=== PATIENT | female | born 1940 | race Caucasian/White ===

== ENCOUNTER 2022-10-27 13:28 | Inpatient (IN) | payer OTHER, BC ==
[2022-10-27 13:37] VITALS: BMI 21.5
[2022-10-27] MEDS ORDERED: VANCOMYCIN/WATER 1,250 MG/250 ML BAG (RESTRICTED TO ID ONLY) IVPB ONE (14:53)
[2022-10-27] MEDS ORDERED: VANCOMYCIN/WATER 1250 MG 1,250 MG/250 ML BAG IVPB ONE (16:22)
[2022-10-27 17:21] LABS: HEMOGLOBIN 14.4 GM/dL (10.7-15.3); MCH 29.8 pg (25.7-33.7); MEAN CELL VOLUME 93.1 fl (80-96); MEAN PLT VOLUME 7.9 fl (7.5-11.1); PLATELET COUNT 316 10^3/uL (134-434); RBC 4.84 M/mm3 (3.60-5.2); RDW 13.4 % (11.6-15.6); WHITE BLOOD COUNT 12.5 K/mm3 (4.0-10.0)
[2022-10-27 17:32] LABS: INR 1.06 (0.83-1.09); PROTHROMBIN TIME (PATIENT) 12.3 SEC (9.7-13.0)
[2022-10-27 17:41] LABS: POTASSIUM 3.8 mmol/L (3.5-5.1)
[2022-10-27 17:44] LABS: BLOOD UREA NITROGEN 18.4 mg/dL (7-18); CALCIUM 9.1 mg/dL (8.5-10.1)
[2022-10-27 17:45] LABS: ALBUMIN 3.8 g/dl (3.4-5.0)
[2022-10-27 17:48] LABS: CREATININE 0.6 mg/dL (0.55-1.3)
[2022-10-27 17:49] LABS: BILIRUBIN,TOTAL 0.8 mg/dL (0.2-1); TOT PROT 7.3 g/dl (6.4-8.2)
[2022-10-27] MEDS ORDERED: HALOPERIDOL LACTATE 5 MG/ML IM ONE ×3 (18:23→18:37)
[2022-10-27 18:28] LABS: ERYTHROCYTE SEDIMENTATION RATE 8 mm/hr (0-30)
[2022-10-27] MEDS ORDERED: LORazepam 1 MG TABLET PO ONE (20:04)
[2022-10-27] MEDS ORDERED: LORazepam 1 MG TABLET ONE (20:21)
[2022-10-27] MEDS ORDERED: LORazepam 2 MG/ML SDV VIAL IVPUSH ONE (20:23)
[2022-10-27] MEDS ORDERED: SODIUM CHLORIDE 1,000 ML IV SCH (23:15)
[2022-10-28] MEDS: CLINDAMYCIN 300 MG PREMIX IVPB 300 MG/50 ML BAG IVPB SCH ×2 (00:49→05:19)
[2022-10-28] MEDS: DONEPEZIL HCL 10 MG TABLET (FP) PO SCH (09:12)
[2022-10-28] MEDS: MEMANTINE HCL 5 MG TABLET (UD) PO SCH ×2 (09:12→22:10)
[2022-10-28] MEDS: ENOXAPARIN NA (PORCINE) 40 MG/0.4 ML DISP.SYRIN SQ SCH (09:12)
[2022-10-28] MEDS ORDERED: CEFTRIAXONE 1 GM in DEXTROSE 5%-WATER - 50 ML IVPB SCH (10:00)
[2022-10-28 10:14] LABS: HEMATOCRIT 44.4 % (32.4-45.2); HEMOGLOBIN 14.4 GM/dL (10.7-15.3); MCH 29.6 pg (25.7-33.7); MCHC 32.4 g/dl (32.0-36.0); MEAN CELL VOLUME 91.3 fl (80-96); MEAN PLT VOLUME 7.9 fl (7.5-11.1); PLATELET COUNT 366 10^3/uL (134-434); RBC 4.86 M/mm3 (3.60-5.2); RDW 13.2 % (11.6-15.6); WHITE BLOOD COUNT 20.1 K/mm3 (4.0-10.0)
[2022-10-28 10:28] LABS: POTASSIUM 3.9 mmol/L (3.5-5.1)
[2022-10-28 10:37] LABS: ALBUMIN 3.8 g/dl (3.4-5.0); CALCIUM 9.4 mg/dL (8.5-10.1)
[2022-10-28 10:38] LABS: BLOOD UREA NITROGEN 13.4 mg/dL (7-18); MAGNESIUM 2.3 mg/dL (1.8-2.4)
[2022-10-28 10:40] LABS: PHOSPHOROUS 3.3 mg/dL (2.5-4.9)
[2022-10-28 10:41] LABS: CREATININE 0.7 mg/dL (0.55-1.3)
[2022-10-28 10:42] LABS: BILIRUBIN,TOTAL 1.2 mg/dL (0.2-1); TOT PROT 7.3 g/dl (6.4-8.2)
[2022-10-28 11:46] LABS: ANISOCYTOSIS 1+; MACROCYTOSIS 0; TOXIC GRANULATION 1+
[2022-10-28] MEDS ORDERED: PIPERACILLIN/TAZOB 3.375 GM 3.375 GM in DEXTROSE 5%-WATER - 50 ML IVPB ONE (13:00)
[2022-10-28] MEDS ORDERED: LACTATED RINGERS SOLUTION 1,000 ML/1,000 ML INFUS.BAG IV STA (15:13)
[2022-10-28] MEDS ORDERED: QUEtiapine FUMARATE 100 MG TABLET (FP) PO PRN (15:19)
[2022-10-28] MEDS ORDERED: LACTATED RINGERS SOLUTION 1,000 ML/1,000 ML INFUS.BAG IV SCH (15:45)
[2022-10-28] MEDS: VANCOMYCIN/WATER FOR INJ (PEG) 1,000 MG/200 ML BAG IVPB SCH (16:19)
[2022-10-28 18:28] LABS: BASO % 0.4 % (0-2.0); EOS % 0.2 % (0-4.5); HEMATOCRIT 42.7 % (32.4-45.2); HEMOGLOBIN 14.3 GM/dL (10.7-15.3); MCHC 33.5 g/dl (32.0-36.0); MEAN CELL VOLUME 89.5 fl (80-96); MEAN PLT VOLUME 7.3 fl (7.5-11.1); MONO % 3.6 % (3.8-10.2); NEUT % 69.8 % (42.8-82.8); PLATELET COUNT 377 10^3/uL (134-434); RBC 4.77 M/mm3 (3.60-5.2); RDW 13.5 % (11.6-15.6); WHITE BLOOD COUNT 22.1 K/mm3 (4.0-10.0)
[2022-10-28] MEDS: MIRTAZAPINE 15 MG TABLET (FP) PO SCH (22:09)
[2022-10-29 09:17] LABS: BASO % 0.4 % (0-2.0); EOS % 1.2 % (0-4.5); HEMATOCRIT 42.7 % (32.4-45.2); HEMOGLOBIN 13.9 GM/dL (10.7-15.3); LYMPH % 34.1 % (8-40); MCH 30.1 pg (25.7-33.7); MCHC 32.6 g/dl (32.0-36.0); MEAN CELL VOLUME 92.5 fl (80-96); MEAN PLT VOLUME 7.3 fl (7.5-11.1); MONO % 4.8 % (3.8-10.2); NEUT % 59.5 % (42.8-82.8); PLATELET COUNT 302 10^3/uL (134-434); RBC 4.61 M/mm3 (3.60-5.2); RDW 13.4 % (11.6-15.6); WHITE BLOOD COUNT 12.5 K/mm3 (4.0-10.0)
[2022-10-29 09:29] LABS: POTASSIUM 3.7 mmol/L (3.5-5.1)
[2022-10-29 09:35] LABS: BLOOD UREA NITROGEN 14.6 mg/dL (7-18); CALCIUM 8.6 mg/dL (8.5-10.1)
[2022-10-29 09:36] LABS: ALBUMIN 3.2 g/dl (3.4-5.0)
[2022-10-29 09:39] LABS: CREATININE 0.6 mg/dL (0.55-1.3)
[2022-10-29 09:41] LABS: TOT PROT 6.4 g/dl (6.4-8.2)
[2022-10-29 09:44] LABS: BILIRUBIN,TOTAL 1.1 mg/dL (0.2-1)
[2022-10-29] MEDS: DONEPEZIL HCL 10 MG TABLET (FP) PO SCH (10:15)
[2022-10-29] MEDS: CEFTRIAXONE 2 GM in DEXTROSE 5%-WATER 100 ML IVPB SCH (10:15)
[2022-10-29] MEDS: QUEtiapine FUMARATE 100 MG TABLET (FP) PO SCH ×3 (10:15→21:29)
[2022-10-29] MEDS: ENOXAPARIN NA (PORCINE) 40 MG/0.4 ML DISP.SYRIN SQ SCH (10:15)
[2022-10-29] MEDS: MEMANTINE HCL 5 MG TABLET (UD) PO SCH ×2 (10:15→21:29)
[2022-10-29] MEDS: SODIUM CHLORIDE 0.45% 1,000 ML IV SCH (11:25)
[2022-10-29] MEDS: VANCOMYCIN/WATER FOR INJ (PEG) 1,000 MG/200 ML BAG IVPB SCH (16:12)
[2022-10-29] MEDS: MIRTAZAPINE 15 MG TABLET (FP) PO SCH (21:29)
[2022-10-30] MEDS: QUEtiapine FUMARATE 100 MG TABLET (FP) PO SCH ×3 (06:09→22:03)
[2022-10-30] MEDS: SODIUM CHLORIDE 0.45% 1,000 ML IV SCH ×2 (06:17→15:53)
[2022-10-30 09:43] LABS: BASO % 0.4 % (0-2.0); HEMATOCRIT 43.4 % (32.4-45.2); HEMOGLOBIN 14.1 GM/dL (10.7-15.3); LYMPH % 39.3 % (8-40); MCHC 32.4 g/dl (32.0-36.0); MEAN CELL VOLUME 92.6 fl (80-96); MEAN PLT VOLUME 7.4 fl (7.5-11.1); MONO % 3.7 % (3.8-10.2); NEUT % 54.6 % (42.8-82.8); PLATELET COUNT 297 10^3/uL (134-434); RBC 4.69 M/mm3 (3.60-5.2); RDW 13.3 % (11.6-15.6); WHITE BLOOD COUNT 10.4 K/mm3 (4.0-10.0)
[2022-10-30 10:08] LABS: ALBUMIN 3.1 g/dl (3.4-5.0); BLOOD UREA NITROGEN 15.3 mg/dL (7-18); CALCIUM 8.5 mg/dL (8.5-10.1)
[2022-10-30 10:12] LABS: CREATININE 0.6 mg/dL (0.55-1.3)
[2022-10-30 10:14] LABS: TOT PROT 6.1 g/dl (6.4-8.2)
[2022-10-30] MEDS: DONEPEZIL HCL 10 MG TABLET (FP) PO SCH (10:27)
[2022-10-30] MEDS: MEMANTINE HCL 5 MG TABLET (UD) PO SCH ×2 (10:27→22:03)
[2022-10-30] MEDS: ENOXAPARIN NA (PORCINE) 40 MG/0.4 ML DISP.SYRIN SQ SCH (10:27)
[2022-10-30] MEDS: CEFTRIAXONE 2 GM in DEXTROSE 5%-WATER 100 ML IVPB SCH (10:28)
[2022-10-30 14:53] VITALS: RESP 18
[2022-10-30] MEDS: VANCOMYCIN/WATER FOR INJ (PEG) 1,000 MG/200 ML BAG IVPB SCH (17:50)
[2022-10-30] MEDS: MIRTAZAPINE 15 MG TABLET (FP) PO SCH (22:03)
[2022-10-31] MEDS: QUEtiapine FUMARATE 100 MG TABLET (FP) PO SCH ×3 (05:06→21:23)
[2022-10-31 08:58] LABS: BASO % 0.6 % (0-2.0); HEMATOCRIT 42.3 % (32.4-45.2); HEMOGLOBIN 13.7 GM/dL (10.7-15.3); LYMPH % 41.1 % (8-40); MCH 30.4 pg (25.7-33.7); MCHC 32.4 g/dl (32.0-36.0); MEAN CELL VOLUME 93.8 fl (80-96); MEAN PLT VOLUME 7.3 fl (7.5-11.1); MONO % 4.6 % (3.8-10.2); NEUT % 51.7 % (42.8-82.8); PLATELET COUNT 280 10^3/uL (134-434); RBC 4.51 M/mm3 (3.60-5.2); RDW 13.4 % (11.6-15.6); WHITE BLOOD COUNT 10.9 K/mm3 (4.0-10.0)
[2022-10-31 09:25] LABS: BLOOD UREA NITROGEN 14.1 mg/dL (7-18); CALCIUM 8.5 mg/dL (8.5-10.1)
[2022-10-31 09:29] LABS: CREATININE 0.5 mg/dL (0.55-1.3)
[2022-10-31] MEDS: DONEPEZIL HCL 10 MG TABLET (FP) PO SCH (10:49)
[2022-10-31] MEDS: ENOXAPARIN NA (PORCINE) 40 MG/0.4 ML DISP.SYRIN SQ SCH (10:49)
[2022-10-31] MEDS: MEMANTINE HCL 5 MG TABLET (UD) PO SCH ×2 (10:49→21:23)
[2022-10-31] MEDS: CEFTRIAXONE 2 GM in DEXTROSE 5%-WATER 100 ML IVPB SCH (10:50)
[2022-10-31] MEDS ORDERED: SODIUM CHLORIDE 0.45% 1,000 ML IV SCH (11:45)
[2022-10-31] MEDS: VANCOMYCIN/WATER FOR INJ (PEG) 1,000 MG/200 ML BAG IVPB SCH (16:40)
[2022-10-31] MEDS: MIRTAZAPINE 15 MG TABLET (FP) PO SCH (21:22)
[2022-11-01] MEDS: QUEtiapine FUMARATE 100 MG TABLET (FP) PO SCH ×3 (05:38→21:21)
[2022-11-01 09:22] LABS: POTASSIUM 3.9 mmol/L (3.5-5.1)
[2022-11-01 09:26] LABS: BASO % 0.3 % (0-2.0); HEMATOCRIT 40.1 % (32.4-45.2); HEMOGLOBIN 13.6 GM/dL (10.7-15.3); LYMPH % 36.7 % (8-40); MCH 30.7 pg (25.7-33.7); MEAN CELL VOLUME 90.2 fl (80-96); MEAN PLT VOLUME 7.1 fl (7.5-11.1); MONO % 4.2 % (3.8-10.2); NEUT % 56.8 % (42.8-82.8); PLATELET COUNT 293 10^3/uL (134-434); RBC 4.45 M/mm3 (3.60-5.2); RDW 13.5 % (11.6-15.6); WHITE BLOOD COUNT 9.6 K/mm3 (4.0-10.0)
[2022-11-01 09:29] LABS: CALCIUM 8.6 mg/dL (8.5-10.1)
[2022-11-01 09:30] LABS: BLOOD UREA NITROGEN 18.3 mg/dL (7-18)
[2022-11-01 09:33] LABS: CREATININE 0.6 mg/dL (0.55-1.3)
[2022-11-01] MEDS: MEMANTINE HCL 5 MG TABLET (UD) PO SCH ×2 (10:56→21:21)
[2022-11-01] MEDS: DONEPEZIL HCL 10 MG TABLET (FP) PO SCH (10:56)
[2022-11-01] MEDS: CEFTRIAXONE 2 GM in DEXTROSE 5%-WATER 100 ML IVPB SCH (11:00)
[2022-11-01] MEDS: ENOXAPARIN NA (PORCINE) 40 MG/0.4 ML DISP.SYRIN SQ SCH (12:04)
[2022-11-01] MEDS ORDERED: LORazepam 2 MG/ML SDV VIAL IVPUSH ONE (14:11)
[2022-11-01] MEDS: MIRTAZAPINE 15 MG TABLET (FP) PO SCH (21:21)
[2022-11-02] MEDS: QUEtiapine FUMARATE 100 MG TABLET (FP) PO SCH ×3 (05:40→21:35)
[2022-11-02 09:41] LABS: HEMATOCRIT 41.9 % (32.4-45.2); HEMOGLOBIN 14.2 GM/dL (10.7-15.3); MCH 30.6 pg (25.7-33.7); MCHC 33.8 g/dl (32.0-36.0); MEAN CELL VOLUME 90.5 fl (80-96); MEAN PLT VOLUME 6.7 fl (7.5-11.1); PLATELET COUNT 317 10^3/uL (134-434); RBC 4.63 M/mm3 (3.60-5.2); RDW 13.6 % (11.6-15.6); WHITE BLOOD COUNT 10.2 K/mm3 (4.0-10.0)
[2022-11-02 10:00] LABS: POTASSIUM 4.2 mmol/L (3.5-5.1)
[2022-11-02 10:08] LABS: CALCIUM 8.7 mg/dL (8.5-10.1)
[2022-11-02 10:11] LABS: BLOOD UREA NITROGEN 15.5 mg/dL (7-18)
[2022-11-02 10:12] LABS: CREATININE 0.5 mg/dL (0.55-1.3)
[2022-11-02] MEDS: ENOXAPARIN NA (PORCINE) 40 MG/0.4 ML DISP.SYRIN SQ SCH (10:25)
[2022-11-02] MEDS: CEFAZOLIN SODIUM 2 GM in DEXTROSE 5%-WATER 100 ML IVPB SCH ×2 (10:25→19:02)
[2022-11-02] MEDS: DONEPEZIL HCL 10 MG TABLET (FP) PO SCH (10:25)
[2022-11-02] MEDS: MEMANTINE HCL 5 MG TABLET (UD) PO SCH ×2 (10:26→21:35)
[2022-11-02] MEDS: MIRTAZAPINE 15 MG TABLET (FP) PO SCH (21:35)
[2022-11-03] MEDS: CEFAZOLIN SODIUM 2 GM in DEXTROSE 5%-WATER 100 ML IVPB SCH ×3 (03:21→18:16)
[2022-11-03] MEDS: QUEtiapine FUMARATE 100 MG TABLET (FP) PO SCH ×3 (06:08→22:33)
[2022-11-03 08:51] LABS: HEMATOCRIT 43.1 % (32.4-45.2); MCH 30.2 pg (25.7-33.7); MCHC 32.5 g/dl (32.0-36.0); MEAN CELL VOLUME 92.8 fl (80-96); MEAN PLT VOLUME 7.4 fl (7.5-11.1); PLATELET COUNT 312 10^3/uL (134-434); RBC 4.64 M/mm3 (3.60-5.2); RDW 13.3 % (11.6-15.6)
[2022-11-03] MEDS: DONEPEZIL HCL 10 MG TABLET (FP) PO SCH (11:24)
[2022-11-03] MEDS: MEMANTINE HCL 5 MG TABLET (UD) PO SCH ×2 (11:24→22:33)
[2022-11-03] MEDS: ENOXAPARIN NA (PORCINE) 40 MG/0.4 ML DISP.SYRIN SQ SCH (11:25)
[2022-11-03] MEDS: MIRTAZAPINE 15 MG TABLET (FP) PO SCH (22:33)
[2022-11-04] MEDS: CEFAZOLIN SODIUM 2 GM in DEXTROSE 5%-WATER 100 ML IVPB SCH ×2 (01:21→10:06)
[2022-11-04] MEDS: QUEtiapine FUMARATE 100 MG TABLET (FP) PO SCH ×2 (06:02→14:30)
[2022-11-04] MEDS: ENOXAPARIN NA (PORCINE) 40 MG/0.4 ML DISP.SYRIN SQ SCH (10:05)
[2022-11-04] MEDS: MEMANTINE HCL 5 MG TABLET (UD) PO SCH (10:07)
[2022-11-04 14:22] VITALS: BP 121/51; PULSE 87; TEMP 98.4
[2022-11-04] MEDS ORDERED: DONEPEZIL HCL 10 MG TABLET (FP) PO SCH (22:00)
== END 2022-11-04 15:56 | disposition home health service (06) | DRG 541 ==
LOC: JER 13:28 → JERBED 21:56 → J6S 23:23
PROVIDERS: ADMIT Internal Medicine; ATTEND Internal Medicine
DX: M86.8X6 Other osteomyelitis, lower leg (principal); L03.031 Cellulitis of right toe; F03.90 Unspecified dementia, unspecified severity, without behavioral disturbance, psychotic disturbance, mood disturbance, and anxiety; F17.210 Nicotine dependence, cigarettes, uncomplicated; D72.829 Elevated white blood cell count, unspecified; B95.61 Methicillin susceptible Staphylococcus aureus infection as the cause of diseases classified elsewhere
CPT/HCPCS: 36415; 71045-TC-FY; 73660-TC-FY; 80048; 80053; 83605; 83735; 84100; 85025; 85027; 85610; 85651; 86140; 86850; 86900; 86901; 87040; 87070; 87077; 87186; 87205; 87635; 93005; 93010; 93926-TC; 93971-TC; 97116-GP; 97162-GP; 99285-25; G0480

== ENCOUNTER 2022-11-05 13:10 | Day surgery (SDC) | payer OTHER, BC ==
[2022-11-05] MEDS ORDERED: DALBAVANCIN HCL 1,500 MG in DEXTROSE 5%-WATER - 500 ML IVPB ONE (14:00)
[2022-11-05 17:18] VITALS: BP 110/70; PULSE 68; RESP 18; TEMP 98.3
== END 2022-11-05 15:50 | disposition home or self-care (01) ==
LOC: FINFUSION 13:10 → FM/S 13:14 → FINFUSION 15:50
PROVIDERS: ATTEND Internal Medicine
DX: L03.90 Cellulitis, unspecified (principal)
CPT/HCPCS: 96365; 96366; 96367; J0875

== ENCOUNTER 2022-11-13 13:07 | Day surgery (SDC) | payer OTHER, BC ==
[2022-11-13] MEDS ORDERED: DALBAVANCIN HCL IVPB ONE (13:30)
[2022-11-13] MEDS ORDERED: WATER IVPB ONE (13:30)
[2022-11-13] MEDS ORDERED: DEXTROSE 10% IVPB ONE (13:30)
[2022-11-13 13:37] VITALS: RESP 18; TEMP 98.7
[2022-11-13 14:39] VITALS: BP 135/59; PULSE 88
== END 2022-11-13 14:39 | disposition home or self-care (01) ==
LOC: FINFUSION 13:07 → FM/S 13:07 → FINFUSION 14:39
PROVIDERS: ATTEND Internal Medicine
PROC: 3E033GC Introduction of Other Therapeutic Substance into Peripheral Vein, Percutaneous Approach (ICD-10-PCS; principal; 2022-11-13)
DX: L03.90 Cellulitis, unspecified (principal); L03.031 Cellulitis of right toe
CPT/HCPCS: 96365; J0875

== ENCOUNTER 2023-01-13 09:58 | Day surgery (SDC) | payer OTHER, BC ==
[2023-01-13 10:21] VITALS: BMI 22.4
[2023-01-13] MEDS ORDERED: MIDAZOLAM HCL 2 MG/2 ML SINGLE DOSE VIAL ONE (11:04)
[2023-01-13] MEDS ORDERED: ROPIVACAINE HCL 0.5% 30ML VIAL ONE (11:04)
[2023-01-13] MEDS ORDERED: PROPOFOL 40 ML ONE (11:30)
[2023-01-13] MEDS ORDERED: SUCCINYLCHOLINE CHLORIDE 200 MG/10 ML SYRINGE ONE (11:30)
[2023-01-13] MEDS ORDERED: LIDOCAINE HCL 1%, 10 MG/ML (20ML VIAL) ONE (11:56)
[2023-01-13] MEDS ORDERED: BUPIVACAINE HCL/PF 0.5% (5MG/ML) 10 ML VIAL ONE (11:56)
[2023-01-13] MEDS ORDERED: ONDANSETRON 4 MG/2 ML VIAL IVPUSH PRN (13:05)
[2023-01-13] MEDS ORDERED: LACTATED RINGERS SOLUTION 1,000 ML IV SCH (13:15)
[2023-01-13 14:13] VITALS: RESP 18; TEMP 97.7
[2023-01-13 15:00] VITALS: BP 137/50; PULSE 78
== END 2023-01-13 15:00 | disposition home or self-care (01) ==
LOC: FASU 09:58
PROVIDERS: ATTEND Orthopaedic Surgery
PROC: 0LN50ZZ Release Right Lower Arm and Wrist Tendon, Open Approach (ICD-10-PCS; 2023-01-13)
PROC: 0PSH04Z Reposition Right Radius with Internal Fixation Device, Open Approach (ICD-10-PCS; principal; 2023-01-13 12:05)
DX: S52.571A Other intraarticular fracture of lower end of right radius, initial encounter for closed fracture (principal); X58.XXXA Exposure to other specified factors, initial encounter; Y93.9 Activity, unspecified; Y92.9 Unspecified place or not applicable
CPT/HCPCS: 25290; 25609; C1713; 73110-TC-RT-FY; 94760